=== PATIENT | male | born 1985 | race African-American/Black ===

== ENCOUNTER → 2025-01-22 16:11 | Outpatient (CLI) | payer BC, SELFPAY ==
[2025-01-22 18:26] LABS: Urine N gonorrhoeae NOT DETECTED
[2025-01-22 18:28] LABS: Urine Chlamydia NOT DETECTED
== END ==
PROVIDERS: Visit Provider Physician Assistant
DX: Z20.2 Contact with and (suspected) exposure to infections with a predominantly sexual mode of transmission (principal)
CPT/HCPCS: 87491; 87591

== ENCOUNTER → 2025-01-22 16:15 | Outpatient (CLI) | payer BC, SELFPAY ==
[2025-01-23 16:36] LABS: HIV 1 & 2 Ab/Ag 4th Gen Combo NEGATIVE (NEGATIVE)
== END ==
PROVIDERS: Referring Provider Physician Assistant; Visit Provider Physician Assistant
DX: Z20.2 Contact with and (suspected) exposure to infections with a predominantly sexual mode of transmission (principal)
CPT/HCPCS: 36415; 86592; 87389; 87491; 87591